=== PATIENT | female | born 1965 | race Caucasian/White ===

== ENCOUNTER 2025-01-23 22:47 | Emergency (ER) | payer MEDICAID, OTHER ==
[~2025-01-23] VITALS: Ht 167.6 cm; Wt 82.0 kg
[2025-01-23 23:11] VITALS: O2SAT 99
[2025-01-23] MEDS: ONDANSETRON HCL 4MG/2ML INJ IV ONE (23:58)
[2025-01-24] MEDS ORDERED: IBUP-2030 MT (01:18)
[2025-01-24] MEDS ORDERED: HYDR-4005 MT (01:18)
[2025-01-24] MEDS ORDERED: DOCU-138 MT (01:23)
[2025-01-24] MEDS: MORPHINE SULFATE 4 MG/ML INJ (FOR IV/IM USE) IV ONE ×2 (01:38)
[2025-01-24 02:11] VITALS: BP 150/86; PULSE 74; RESP 21; TEMP 36.7; O2SAT 98
== END 2025-01-24 02:39 | disposition home or self-care (01) ==
LOC: ER 22:47
DX: S42.202A Unspecified fracture of upper end of left humerus, initial encounter for closed fracture (principal); I10 Essential (primary) hypertension; E11.9 Type 2 diabetes mellitus without complications; M06.9 Rheumatoid arthritis, unspecified; Z79.899 Other long term (current) drug therapy; W01.0XXA Fall on same level from slipping, tripping and stumbling without subsequent striking against object, initial encounter; Y93.89 Activity, other specified; Y92.89 Other specified places as the place of occurrence of the external cause; Y99.8 Other external cause status
CPT/HCPCS: 73030; 73060; 73080; 96374; 99285; 96375; 96376; J2405; J2270 ×2; Z7610; A4565; A4606